=== PATIENT | female | born 1995 | race Caucasian/White ===

== ENCOUNTER 2020-09-24 16:28 | Emergency (ER) | payer OTHER ==
[~2020-09-24] VITALS: Ht 170.2 cm; Wt 64.4 kg
== END 2020-09-24 20:25 | disposition home or self-care (01) ==
LOC: ER 16:28
DX: O98.511 Other viral diseases complicating pregnancy, first trimester (principal); U07.1 COVID-19; B96.0 Mycoplasma pneumoniae [M. pneumoniae] as the cause of diseases classified elsewhere; Z3A.08 8 weeks gestation of pregnancy

== ENCOUNTER 2021-01-26 18:34 | Emergency (ER) | payer OTHER ==
[~2021-01-26] VITALS: Ht 175.3 cm; Wt 68.9 kg
[2021-01-26] MEDS ORDERED: ZITHROMAX500 MG PO (22:34)
== END 2021-01-26 22:48 | disposition home or self-care (01) ==
LOC: ER 18:34
DX: O99.512 Diseases of the respiratory system complicating pregnancy, second trimester (principal); O26.892 Other specified pregnancy related conditions, second trimester; B96.0 Mycoplasma pneumoniae [M. pneumoniae] as the cause of diseases classified elsewhere; Z3A.26 26 weeks gestation of pregnancy

== ENCOUNTER 2021-04-21 09:15 | Inpatient (IN) | payer OTHER ==
[~2021-04-21] VITALS: Ht 175.3 cm; Wt 73.5 kg
[~2021-04-21 09:15] MED LIST: ZITHROMAX500 MG PO
[2021-04-21] MEDS ORDERED: OBTREX DHA COM1 EACH PO (12:15)
== END 2021-04-29 15:49 | disposition home or self-care (01) | DRG 788 ==
LOC: EDSTATUS 09:15 → SURH 04-26 09:15 → OB/GYN 04-26 12:06 → O/R 04-26 12:06 → OB/GYN 04-26 21:08
PROVIDERS: ADMIT Obstetrics & Gynecology; ATTEND Obstetrics & Gynecology
PROC: 4A1HXFZ Monitoring of Products of Conception, Cardiac Rhythm, External Approach (ICD-10-PCS; 2021-04-26)
PROC: 10D00Z1 Extraction of Products of Conception, Low, Open Approach (ICD-10-PCS; principal; 2021-04-26 16:30)
DX: O34.211 Maternal care for low transverse scar from previous cesarean delivery (principal); Z37.0 Single live birth; Z3A.39 39 weeks gestation of pregnancy

== ENCOUNTER 2022-02-07 17:20 | Emergency (ER) | payer OTHER ==
[~2022-02-07] VITALS: Ht 175.3 cm; Wt 62.6 kg
[~2022-02-07 17:20] MED LIST changes: +ACETAMINOPHEN650 M2 PO; +OBTREX DHA COM1 EACH PO; +PRENATABS RX T1 EACH PO; +TYLENOL EXTRA500 MG PO
== END 2022-02-07 22:45 | disposition home or self-care (01) ==
LOC: ER 17:20
DX: O23.42 Unspecified infection of urinary tract in pregnancy, second trimester (principal); N39.0 Urinary tract infection, site not specified; Z3A.19 19 weeks gestation of pregnancy; Z20.822 Contact with and (suspected) exposure to COVID-19

== ENCOUNTER 2022-05-06 14:24 | Inpatient (IN) | payer OTHER ==
[~2022-05-06] VITALS: Ht 175.3 cm; Wt 72.1 kg
== END 2022-05-10 20:38 | disposition home or self-care (01) | DRG 833 ==
LOC: LDR 14:24 → OB/GYN 05-09 19:16 → LDR 05-09 20:11
PROVIDERS: ADMIT Obstetrics & Gynecology; ATTEND Obstetrics & Gynecology
PROC: BY4FZZZ Ultrasonography of Third Trimester, Single Fetus (ICD-10-PCS; principal; 2022-05-06)
PROC: 4A1HXCZ Monitoring of Products of Conception, Cardiac Rate, External Approach (ICD-10-PCS; 2022-05-06)
PROC: BY4FZZZ Ultrasonography of Third Trimester, Single Fetus (ICD-10-PCS; 2022-05-10)
PROC: BU4CZZZ Ultrasonography of Uterus and Ovaries (ICD-10-PCS; 2022-05-10)
DX: O26.843 Uterine size-date discrepancy, third trimester (principal); O36.8130 Decreased fetal movements, third trimester, not applicable or unspecified; O34.211 Maternal care for low transverse scar from previous cesarean delivery; O46.8X3 Other antepartum hemorrhage, third trimester; O60.03 Preterm labor without delivery, third trimester; Z3A.34 34 weeks gestation of pregnancy; Z20.822 Contact with and (suspected) exposure to COVID-19

== ENCOUNTER 2022-05-24 03:45 | Inpatient (IN) | payer OTHER ==
[~2022-05-24] VITALS: Ht 175.3 cm; Wt 3.2 kg
== END 2022-05-27 12:38 | disposition home or self-care (01) | DRG 785 ==
LOC: OBS/DEL 03:45 → OB/GYN 04:58 → LDR 04:58 → O/R 07:36 → OB/GYN 08:43
PROVIDERS: ADMIT Obstetrics & Gynecology; ATTEND Obstetrics & Gynecology
PROC: 0UB70ZZ Excision of Bilateral Fallopian Tubes, Open Approach (ICD-10-PCS; 2022-05-24)
PROC: 4A1HXCZ Monitoring of Products of Conception, Cardiac Rate, External Approach (ICD-10-PCS; 2022-05-24)
PROC: 10D00Z1 Extraction of Products of Conception, Low, Open Approach (ICD-10-PCS; principal; 2022-05-24 05:30)
DX: O60.14X0 Preterm labor third trimester with preterm delivery third trimester, not applicable or unspecified (principal); O34.211 Maternal care for low transverse scar from previous cesarean delivery; Z3A.36 36 weeks gestation of pregnancy; Z37.0 Single live birth; Z20.822 Contact with and (suspected) exposure to COVID-19; Z30.2 Encounter for sterilization

== ENCOUNTER 2022-06-03 15:58 | Emergency (ER) | payer OTHER ==
[~2022-06-03] VITALS: Ht 175.3 cm; Wt 68.0 kg
== END 2022-06-03 21:30 | disposition home or self-care (01) ==
LOC: ER 15:58
DX: O90.89 Other complications of the puerperium, not elsewhere classified (principal); R10.2 Pelvic and perineal pain; N39.0 Urinary tract infection, site not specified